=== PATIENT | female | born 2000 | race Caucasian/White ===

== ENCOUNTER 2018-12-18 17:54 | Emergency (ER) | payer OTHER ==
[2018-12-18] MEDS ORDERED: METOCLOPRAMIDE HCL INJ/PF 10 MG/2 ML SDV IV ONE (20:05)
[2018-12-18] MEDS ORDERED: NORMAL SALINE 1000 ML 1,000 ML IV ONE (20:05)
--- NOTE | 2018-12-18 20:07 | ER Document Report ---
ED Medical Screen (RME) - General Chief Complaint: Abdominal Cramping Stated Complaint: ABDOMINAL CRAMPING Time Seen by Provider: 12/18/18 20:01 Notes: 18-year-old female, at 19 weeks 5 days by first trimester ultrasound, that comes to the emergency department for chief complaint of intermittent cramping pain in her lower abdomen/pelvic area. She states that she has had nausea, cramps, and vomiting several times over the course of the past week which is new for her. She also states that several times she found her underwear was wet and she noted it was not blood. She is feeling baby move. Following with [employer] [facility]. TRAVEL OUTSIDE OF THE [place] IN LAST 30 DAYS: No - Related Data Allergies/Adverse Reactions: No Known Allergies Allergy (Unverified 12/18/18 17:57) Past Medical History - Social History Chew tobacco use (# tins/day): No Frequency of alcohol use: None Drug Abuse: None Renal/ Medical History: Denies: Hx Peritoneal Dialysis Physical Exam - Vital signs Vitals: Temp Pulse Resp BP Pulse Ox 98.4 F 107 H 16 125/70 98 12/18/18 18:02 12/18/18 18:02 12/18/18 18:02 12/18/18 18:02 12/18/18 18:02 - Abdominal Tenderness: Other - Gravid abdomen, no overt tenderness noted, exam limited by sitting position. Course - Re-evaluation Re-evalutation: I have greeted and performed a rapid initial assessment of this patient. A comprehensive ED assessment and evaluation of the patient, analysis of test results and completion of the medical decision making process will be conducted by additional ED providers. - Vital Signs Vital signs: Temp Pulse Resp BP Pulse Ox 98.4 F 107 H 16 125/70 98 12/18/18 18:02 12/18/18 18:02 12/18/18 18:02 12/18/18 18:02 12/18/18 18:02
[2018-12-18 20:42] LABS: ABSOLUTE BASOPHILS # (AUTO) 0.1 10^3/uL (0.0-0.2); ABSOLUTE EOSINOPHILS # (AUTO) 0.1 10^3/uL (0.0-0.6); ABSOLUTE LYMPHOCYTES (AUTO) 1.7 10^3/uL (0.5-4.7); ABSOLUTE NEUT (AUTO) 12.8 10^3/uL (1.7-8.2); BASOPHILS % (AUTO) 0.4 % (0-2); EOSINOPHILS % (AUTO) 0.8 % (0-6); HEMATOCRIT 36.3 % (36.0-47.0); HEMOGLOBIN 12.3 g/dL (12.0-15.5); LYMPHOCYTES % (AUTO) 10.9 % (13-45); MEAN CORPUSCULAR HEMOGLOBIN 29.7 pg (27.0-33.4); MEAN CORPUSCULAR VOLUME 88 fl (80-97); MONOCYTES % (AUTO) 6.5 % (3-13); PLATELET COUNT 228 10^3/uL (150-450); RED BLOOD COUNT 4.15 10^6/uL (3.72-5.28); RED CELL DISTRIBUTION WIDTH 13.2 % (11.5-14.0); SEGMENTED NEUTROPHILS % (AUTO) 81.4 % (42-78); TOTAL CELLS COUNTED % (AUTO) 100 %; WHITE BLOOD COUNT 15.7 10^3/uL (4.0-10.5)
[2018-12-18 21:05] LABS: ALANINE AMINOTRANSFERASE 16 U/L (9-52); ALBUMIN 4.3 g/dL (3.5-5.0); ALKALINE PHOSPHATASE 56 U/L (38-126); ANION GAP 10 (5-19); ASPARTATE AMINO TRANSFERASE 25 U/L (14-36); BILIRUBIN,DIRECT 0.3 mg/dL (0.0-0.4); BILIRUBIN,TOTAL 0.3 mg/dL (0.2-1.3); BLOOD UREA NITROGEN 11 mg/dL (7-20); CALCIUM 9.4 mg/dL (8.4-10.2); CARBON DIOXIDE 28 mmol/L (22-30); CHLORIDE 105 mmol/L (98-107); POTASSIUM 4.5 mmol/L (3.6-5.0); SODIUM 142.7 mmol/L (137-145)
[2018-12-18 21:08] LABS: GLUCOSE 68 mg/dL (75-110)
--- NOTE | 2018-12-18 21:14 | ER Document Report ---
ED General - General Chief Complaint: Abdominal Cramping Stated Complaint: ABDOMINAL CRAMPING Time Seen by Provider: 12/18/18 20:01 Primary Care Provider: MARCIN GUTIERRES MD [Primary Care Provider] - Follow up as needed Notes: Patient is a 18-year-old female, approximately 19 weeks gravid that presents to the emergency department for chief complaint of abdominal cramping, and feeling that she may have had rupture of membranes earlier today. Patient states she felt a gush of liquid in the pelvic region around 7 AM this morning, and felt like she was having some leaking throughout the rest of today. Denies having any bleeding associated, she is had some nausea and vomiting over the past week, but none today. She is had some mild lower abdominal cramping, which she states is tolerable at this time. She is currently being seen at , but decided to come to our emergency department today. She denies having any recent fevers, chills, night sweats, chest pain, shortness of breath, dysuria or hematuria. Past Medical History: Denies chronic medical conditions Past Surgical History: Tonsillectomy, adenoidectomy Social History: Denies tobacco, alcohol or drug use. Family History: Reviewed and noncontributory for presenting illness Allergies: Reviewed, see documented allergy list. REVIEW OF SYSTEMS: Other than noted above, the 12 point review of systems was reviewed with the patient and were negative, all pertinent findings are included in the HPI. PHYSICAL EXAMINATION: Vital signs reviewed, nursing noted reviewed. GENERAL: Well-appearing, well-nourished and in no acute distress. HEAD: Atraumatic, normocephalic. EYES: Eyes appear normal, extraocular movements intact, sclera anicteric, conjunctiva are normal. ENT: nares patent, oropharynx clear without exudates. Moist mucous membranes. NECK: Normal range of motion, supple without lymphadenopathy LUNGS: Breath sounds clear to auscultation bilaterally and equal. No wheezes rales or rhonchi. HEART: Heart rate mildly tachycardic, regular rhythm, no audible murmur ABDOMEN: Soft, gravid, nontender, normoactive bowel sounds. No rebound, guarding, or rigidity. No masses appreciated. EXTREMITIES: Nontender, good range of motion, no pitting or edema. NEUROLOGICAL: No focal neurological deficits. Moves all extremities spontaneously Motor and sensory grossly intact on exam. PSYCH: Normal mood, normal affect. SKIN: Warm, Dry, normal turgor, no rashes or lesions noted on exposed skin TRAVEL OUTSIDE OF THE [place] IN LAST 30 DAYS: No - Related Data Allergies/Adverse Reactions: No Known Allergies Allergy (Unverified 12/18/18 17:57) Past Medical History - Social History Smoking Status: Never Smoker Chew tobacco use (# tins/day): No Frequency of alcohol use: None Drug Abuse: None Family History: Reviewed & Not Pertinent Patient has suicidal ideation: No Patient has homicidal ideation: No Pulmonary Medical History: Reports: Hx Asthma Renal/ Medical History: Denies: Hx Peritoneal Dialysis Past Surgical History: Reports: Hx Tonsillectomy Physical Exam - Vital signs Vitals: Temp Pulse Resp BP Pulse Ox 98.4 F 107 H 16 125/70 98 12/18/18 18:02 12/18/18 18:02 12/18/18 18:02 12/18/18 18:02 12/18/18 18:02 Course - Re-evaluation Re-evalutation: Patient seen and examined vital signs reviewed. Laboratory data and imaging were ordered as appropriate for the patient's pre senting symptoms and complaint, with consideration of any critical or life threatening conditions that may be associated with their obtained history and exam as noted above. Patient was treated with IV fluids and Reglan Results were reviewed when available and demonstrated single live intrauterine uterine , without signs of complication, or signs of premature rupture of membranes, cervix is closed, amniotic fluid pockets appeared appropriate in size. Patient did have a leukocytosis, nonspecific, no outward signs of infection, no fever, UA was unremarkable. The patient was re-evaluated and was stable, after reviewing imaging, I do not feel that the patient a premature rupture of membranes, given the normal appearance of the amniotic fluid sac, and patient was on any distress, and cramping was minimal. Advised follow-up with her [facility] and [facility], she has an appointment on Tuesday. Evaluation was most consistent with pelvic cramping and Results were discussed with the patient at this point, after careful consideration I feel that that patient can be discharged from the emergency department, the patient was educated treatments and reasons to return to the emergency department based on their presumed diagnosis as noted above, they were advised to followup with a primary care physician in 2-3 days. Patient was agreeable to plan of care. *Note is created using voice recognition software and may contain spelling, syntax or grammatical errors. Laboratory 12/18/18 12/18/18 12/18/18 20:29 20:29 20:29 WBC 15.7 H RBC 4.15 Hgb 12.3 Hct 36.3 MCV 88 MCH 29.7 MCHC 34.0 RDW 13.2 Plt Count 228 Seg Neutrophils % 81.4 H Lymphocytes % 10.9 L Monocytes % 6.5 Eosinophils % 0.8 Basophils % 0.4 Absolute Neutrophils 12.8 H Absolute Lymphocytes 1.7 Absolute Monocytes 1.0 Absolute Eosinophils 0.1 Absolute Basophils 0.1 Sodium 142.7 Potassium 4.5 Chloride 105 Carbon Dioxide 28 Anion Gap 10 BUN 11 Creatinine 0.56 Est GFR ( Amer) > 60 Est GFR (Non-Af Amer) > 60 Glucose 68 L Calcium 9.4 Total Bilirubin 0.3 Direct Bilirubin 0.3 Neonat Total Bilirubin Not Reportable Neonat Direct Bilirubin Not Reportable Neonat Indirect Bili Not Reportable AST 25 ALT 16 Alkaline Phosphatase 56 Total Protein 7.0 Albumin 4.3 Urine Color YELLOW Urine Appearance CLEAR Urine pH 7.0 Ur Specific [place] 1.024 Urine Protein NEGATIVE Urine Glucose (UA) NEGATIVE Urine Ketones NEGATIVE Urine Blood NEGATIVE Urine Nitrite NEGATIVE Urine Bilirubin NEGATIVE Urine Urobilinogen NEGATIVE Ur Leukocyte Esterase NEGATIVE Urine WBC (Auto) 1 Urine RBC (Auto) 1 Squamous Epi Cells Auto 2 Urine Mucus (Auto) OCC Urine Ascorbic Acid 40 H Obstetrics Ultrasound 12/18/18 20:04 IMPRESSION: Single viable fetus in vertex position. Closed cervix. - Vital Signs Vital signs: Temp Pulse Resp BP Pulse Ox 98.4 F 107 H 16 125/70 98 12/18/18 18:02 12/18/18 18:02 12/18/18 18:02 12/18/18 18:02 12/18/18 18:02 - Laboratory Result Diagrams: 12/18/18 20:29 12/18/18 20:29 Laboratory results interpreted by me: 12/18/18 12/18/18 12/18/18 20:29 20:29 20:29 WBC 15.7 H Seg Neutrophils % 81.4 H Lymphocytes % 10.9 L Absolute Neutrophils 12.8 H Glucose 68 L Urine Ascorbic Acid 40 H Discharge - Discharge Clinical Impression: Abdominal pain during Qualifiers: Trimester: second trimester Qualified Code(s): O26.892 - Other specified related conditions, second trimester; R10.9 - Unspecified abdominal pain Condition: Stable Disposition: HOME, SELF-CARE Instructions: Pelvic Pain in ([facility]) Additional Instructions: Please follow-up with your [facility]OLUTION MEDIATOR at your scheduled appointment on Tuesday, if you have any further concerns or changes in your symptoms that concern you, do not hesitate to return to the emergency department sooner. Referrals: MARCIN GUTIERRES MD [Primary Care Provider] - Follow up as needed
[2018-12-18 21:16] LABS: APPEARANCE,URINE CLEAR; BILIRUBIN,URINE NEGATIVE (NEGATIVE); COLOR,URINE YELLOW; GLUCOSE, URINE NEGATIVE (NEGATIVE); KETONES,URINE NEGATIVE (NEGATIVE); LEUKOCYTE ESTERASE,URINE NEGATIVE (NEGATIVE); NITRITE,URINE NEGATIVE (NEGATIVE); PROTEIN,URINE NEGATIVE (NEGATIVE); URINE SPECIFIC GRAVITY 1.024; UROBILINOGEN,URINE NEGATIVE mg/dL (<2.0)
--- NOTE | 2018-12-18 22:22 | RADIOLOGY REPORT (SQ) ---
US PELVIS HISTORY: Lower abdominal pain. COMPARISON: None. TECHNIQUE: Grayscale, color Doppler, and spectral Doppler ultrasound images of the pelvis were obtained. FINDINGS: The cervix measures 4.8 cm in length. The fetus is in vertex position. Placenta is posterior. heart rate is 143 bpm. IMPRESSION: Single viable fetus in vertex position. Closed cervix.
[2018-12-18 22:49] VITALS: BP 104/53
== END 2018-12-18 22:53 | disposition home or self-care (01) ==
LOC: ER 17:54
DX: O26.892 Other specified pregnancy related conditions, second trimester (principal); R10.9 Unspecified abdominal pain; O99.512 Diseases of the respiratory system complicating pregnancy, second trimester; J45.909 Unspecified asthma, uncomplicated; Z3A.00 Weeks of gestation of pregnancy not specified
CPT/HCPCS: 99284; 96374; 36415; 85025; 80053; 81001; 76815; J2765; J7030